=== PATIENT | female | born 2000 | race Caucasian/White ===

== ENCOUNTER 2022-02-23 12:31 | Emergency (ER) | payer OTHER ==
[~2022-02-23] VITALS: Ht 160 cm; Wt 72.7 kg
[2022-02-23 12:43] VITALS: TEMP 98.5
[2022-02-23] MEDS ORDERED: NEXPLANON68 MG ID (12:46)
[2022-02-23 12:56] LABS: COLLECTION METHOD CLEAN CATCH
[2022-02-23 13:02] LABS: PH 5 (5-8); URINE APPEARANCE Clear (CLEAR/HAZY); URINE BACTERIA None Seen /hpf (NONE SEEN); URINE BILIRUBIN Negative (NEGATIVE); URINE BLOOD 1+ (NEGATIVE); URINE COLOR Yellow (YELLOW); URINE GLUCOSE Negative (NEGATIVE); URINE KETONE Negative (NEGATIVE); URINE LEUKOCYTE ESTERASE Negative (NEGATIVE); URINE NITRATE Negative (NEGATIVE); URINE PROTEIN(semi-quant) Negative (NEGATIVE); URINE RBC 0-2 /hpf (0-2); URINE UROBILINOGEN Negative (NEGATIVE)
[2022-02-23 13:19] LABS: BASO # 0.1 K/mm3 (0.0-0.2); BASO % 1.1 % (0.0-2.0); EOS # 0.4 K/mm3 (0.0-0.7); EOS % 5.4 % (0.0-4.0); GRAN # 4.5 K/mm3 (1.4-6.5); HEMATOCRIT 41.6 % (35.0-45.0); HEMOGLOBIN 14.3 g/dl (12.0-15.0); LYMPH % 26.8 % (20.0-51.0); MEAN CELL VOLUME 90 fl (80.0-95.0); MEAN CORPUSCULAR HEMOGLOBIN 31 pg (26-32); MEAN CORPUSCULAR HGB CONC 34 g/dl (33.0-37.0); MONO # 0.6 K/mm3 (0.1-0.6); MONO % 7.4 % (1.7-9.3); PLATELET COUNT 266 K/mm3 (130-400); RED BLOOD COUNT 4.62 M/mm3 (4.10-5.30)
[2022-02-23 13:35] LABS: BILIRUBIN,TOTAL 0.6 mg/dL (0.2-1.2); CALCIUM 9.1 mg/dL (8.4-10.2); CREATININE, serum 0.69 mg/dL (0.57-1.11); POTASSIUM 4.2 mmol/L (3.5-4.5)
[2022-02-23] MEDS ORDERED: ZOFRAN ODT4 MG PO (15:10)
[2022-02-23 15:24] VITALS: BP 112/68; PULSE 79
== END 2022-02-23 15:24 | disposition home or self-care (01) ==
LOC: COL.ER 12:31
PROVIDERS: Emergency Medicine
DX: R10.31 Right lower quadrant pain (principal); R11.0 Nausea; Z32.02 Encounter for pregnancy test, result negative; Z28.310 Unvaccinated for COVID-19
CPT/HCPCS: J2405; J7030; Q9967